=== PATIENT | female | born 1995 | race Caucasian/White ===

== ENCOUNTER 2019-03-30 14:51 | Emergency (ER) | payer OTHER ==
[~2019-03-30] VITALS: Ht 157.5 cm; Wt 57.6 kg
[~2019-03-30 14:51] MED LIST: PRON INH
[2019-03-30 15:02] VITALS: BP 123/78
--- NOTE | 2019-03-30 15:18 | NUR ---
23 Y/O F PRESENTS TO ER C/O BILATERAL EAR PAIN, SORE THROAT AND SUBJECTIVE FEVER X 3 DAYS. CURRENT TEMPERATURE 97.6. PAIN LEVEL 5/10, ACHING, HURTS TO SWALLOW. PT TOOK IBUPROFEN 600MG WITH MILD RELIEF. PT IN CHAIR A. WAITING FOR MD TO EVALUATE PT. ALLERGIES: NKA MED HX: ASTHMA
[2019-03-30] MEDS: ACETAMINOPHEN 325 MG TAB PO ONE (16:01)
--- NOTE | 2019-03-30 16:03 | NUR ---
STREP SWAB COLLECTED
[2019-03-30 17:32] VITALS: BP 130/88
--- NOTE | 2019-03-30 17:32 | NUR ---
Patient discharged with v/s stable. Written and verbal after care instructions given and explained. Pt encouraged to rest and stay hydrated. Patient alert, oriented and verbalized understanding of instructions. Ambulatory with steady gait. All questions addressed prior to discharge. ID band removed. Patient advised to follow up with PMD. Rx of IBUPROFEN 400MG, TYLENOL 500MG, AND CEPACOL 7.5MG WAS given. Patient educated on indication of medication including possible reaction and side effects. Opportunity to ask questions provided and answered.
== END 2019-03-30 18:54 | disposition home or self-care (01) ==
LOC: MED 14:51
DX: J02.8 Acute pharyngitis due to other specified organisms (principal); B97.89 Other viral agents as the cause of diseases classified elsewhere; J45.909 Unspecified asthma, uncomplicated; Z79.899 Other long term (current) drug therapy
CPT/HCPCS: 87081; 99283